=== PATIENT | female | born 1945 | race Caucasian/White ===

== ENCOUNTER → 2020-08-31 | Outpatient (CLI) | payer OTHER | LOC: RAD 15:00 | DX: R09.89 Other specified symptoms and signs involving the circulatory and respiratory systems (principal) | CPT/HCPCS: 70220 ==

== ENCOUNTER → 2020-08-31 | Outpatient (CLI) | payer OTHER | LOC: EXRD 13:41 | DX: R22.1 Localized swelling, mass and lump, neck (principal) | CPT/HCPCS: 76536 ==